=== PATIENT | male | born 1975 | race Caucasian/White ===

== ENCOUNTER 2018-08-22 15:29 | Emergency (ER) | payer OTHER ==
[~2018-08-22] VITALS: Ht 170.2 cm; Wt 83.0 kg
[2018-08-22 16:07] VITALS: BP 165/99
[2018-08-22] MEDS ORDERED: HYDROCODONE/APAP 5/325MG 1 EACH TABLET ONE (16:19)
[2018-08-22] MEDS ORDERED: HYDROCODONE/APAP 5/325MG 1 EACH TABLET PO ONE (16:30)
== END 2018-08-22 16:24 | disposition home or self-care (01) ==
LOC: ER 15:33
DX: K08.89 Other specified disorders of teeth and supporting structures (principal)